=== PATIENT | female | born 1995 ===

== ENCOUNTER 2020-10-24 18:06 | Emergency (ER) | payer OTHER ==
[~2020-10-24] VITALS: Ht 175.3 cm; Wt 60.8 kg
[2020-10-24] MEDS ORDERED: PRENATABS RX T1 EACH PO (18:48)
== END 2020-10-24 22:34 | disposition home or self-care (01) ==
LOC: ER 18:06
DX: O26.891 Other specified pregnancy related conditions, first trimester (principal); R51.9 Headache, unspecified; Z3A.14 14 weeks gestation of pregnancy; Z20.828 Contact with and (suspected) exposure to other viral communicable diseases

== ENCOUNTER 2020-11-27 19:04 | Emergency (ER) | payer OTHER ==
[~2020-11-27] VITALS: Ht 175.3 cm; Wt 62.1 kg
[~2020-11-27 19:04] MED LIST: PRENATABS RX T1 EACH PO
[2020-11-28] MEDS ORDERED: ACETAMINOPHEN650 M2 PO (03:46)
== END 2020-11-28 04:14 | disposition home or self-care (01) ==
LOC: ER 19:04
DX: O46.8X2 Other antepartum hemorrhage, second trimester (principal); O23.32 Infections of other parts of urinary tract in pregnancy, second trimester; Z3A.18 18 weeks gestation of pregnancy; O26.892 Other specified pregnancy related conditions, second trimester; R10.2 Pelvic and perineal pain

== ENCOUNTER → 2020-12-10 | Outpatient (CLI) | payer OTHER ==
[~2020-12-10] MED LIST changes: +ACETAMINOPHEN650 M2 PO
== END | disposition home or self-care (01) ==
LOC: PRENATAL 10:19
PROVIDERS: ATTEND Obstetrics & Gynecology Maternal & Fetal Medicine
DX: O35.0XX1 Maternal care for (suspected) central nervous system malformation in fetus, fetus 1 (principal); O35.3XX1 Maternal care for (suspected) damage to fetus from viral disease in mother, fetus 1; O98.512 Other viral diseases complicating pregnancy, second trimester; O34.219 Maternal care for unspecified type scar from previous cesarean delivery; Z36.89 Encounter for other specified antenatal screening; Z3A.20 20 weeks gestation of pregnancy

== ENCOUNTER 2021-02-28 11:49 | Outpatient (CLI) | payer OTHER | END 2021-02-28 22:49 | disposition home or self-care (01) | LOC: OBS/DEL 11:49 | PROVIDERS: ATTEND Obstetrics & Gynecology | DX: O60.03 Preterm labor without delivery, third trimester (principal); O26.843 Uterine size-date discrepancy, third trimester; O35.0XX0 Maternal care for (suspected) central nervous system malformation in fetus, not applicable or unspecified; Z3A.31 31 weeks gestation of pregnancy ==

== ENCOUNTER 2021-03-19 13:43 | Outpatient (CLI) | payer OTHER | END 2021-03-20 14:33 | disposition home or self-care (01) | LOC: OBS/DEL 13:43 | PROVIDERS: ATTEND Obstetrics & Gynecology | DX: O26.893 Other specified pregnancy related conditions, third trimester (principal); S92.351A Displaced fracture of fifth metatarsal bone, right foot, initial encounter for closed fracture; O23.43 Unspecified infection of urinary tract in pregnancy, third trimester; W10.8XXA Fall (on) (from) other stairs and steps, initial encounter; Y93.01 Activity, walking, marching and hiking; Y92.098 Other place in other non-institutional residence as the place of occurrence of the external cause; Y99.8 Other external cause status; Z20.822 Contact with and (suspected) exposure to COVID-19 ==

== ENCOUNTER → 2021-03-25 | Emergency (ER) | payer OTHER ==
[~2021-03-25] VITALS: Ht 175.3 cm; Wt 73.5 kg
== END | disposition still patient (30) ==
LOC: ER 21:57
DX: O26.893 Other specified pregnancy related conditions, third trimester (principal); S30.1XXA Contusion of abdominal wall, initial encounter; S20.213A Contusion of bilateral front wall of thorax, initial encounter; S70.01XA Contusion of right hip, initial encounter; S40.021A Contusion of right upper arm, initial encounter; S40.022A Contusion of left upper arm, initial encounter; M79.602 Pain in left arm; M79.601 Pain in right arm; M25.551 Pain in right hip; Z3A.34 34 weeks gestation of pregnancy; V89.2XXA Person injured in unspecified motor-vehicle accident, traffic, initial encounter; Y93.89 Activity, other specified; Y92.89 Other specified places as the place of occurrence of the external cause; Y99.8 Other external cause status

== ENCOUNTER 2021-03-26 02:27 | Outpatient (CLI) | payer OTHER | END 2021-03-26 09:11 | disposition home or self-care (01) | LOC: OBS/DEL 02:27 | PROVIDERS: ATTEND Obstetrics & Gynecology | DX: O26.893 Other specified pregnancy related conditions, third trimester (principal); S30.1XXA Contusion of abdominal wall, initial encounter; S20.213A Contusion of bilateral front wall of thorax, initial encounter; S70.01XA Contusion of right hip, initial encounter; S40.021A Contusion of right upper arm, initial encounter; S40.022A Contusion of left upper arm, initial encounter; M79.601 Pain in right arm; M79.602 Pain in left arm; M25.551 Pain in right hip; Z3A.34 34 weeks gestation of pregnancy; V89.2XXA Person injured in unspecified motor-vehicle accident, traffic, initial encounter; Y93.89 Activity, other specified; Y92.89 Other specified places as the place of occurrence of the external cause; Y99.8 Other external cause status ==

== ENCOUNTER 2021-04-24 16:57 | Outpatient (CLI) | payer OTHER ==
[2021-04-24] MEDS ORDERED: TYLENOL EXTRA500 MG PO (20:18)
== END 2021-04-25 11:19 | disposition home or self-care (01) ==
LOC: OBS/DEL 16:57
PROVIDERS: ATTEND Obstetrics & Gynecology
DX: O26.893 Other specified pregnancy related conditions, third trimester (principal); K52.89 Other specified noninfective gastroenteritis and colitis; Z3A.39 39 weeks gestation of pregnancy